=== PATIENT | female | born 1950 | race Caucasian/White ===

== ENCOUNTER → 2022-02-18 11:51 | Outpatient (CLI) | payer OTHER, SELFPAY ==
--- NOTE | ~2022-02-18 | XR_ITS ---
XR shoulder LT min 2V DATE: 02/18/2022 12:32 INDICATION: Left shoulder pain TECHNIQUE: 4 views COMPARISON: None FINDINGS: There is moderate osteophytic change at the left glenohumeral joint including spurring of t he humeral head. Normal alignment at the acromioclavicular and glenohumeral joints. No fracture, disl ocation, periosteal reaction or bone destruction or abnormal soft tissue calcification. Degenerative changes of the thoracic and lumbar spine. Thoracic and lumbar scoliosis. IMPRESSION: Moderate left glenohumeral osteoarthritis Reviewed, dictated and finalized at location A.
--- NOTE | ~2022-02-18 | XR_ITS ---
XR shoulder RT min 2V DATE: 02/18/2022 12:33 INDICATION: Right shoulder pain for 2 months, worsening TECHNIQUE: 4 views COMPARISON: None FINDINGS: There is mild osteoarthritic spurring of the right humeral head. No fracture or dislocation, periosteal reaction or bone destruction of the right shoulder. Normal ali gnment at the right acromioclavicular and glenohumeral joints. No abnormal right shoulder soft tissue calcification. IMPRESSION: Mild right glenohumeral osteoarthritis Reviewed, dictated and finalized at location A.
== END ==
PROVIDERS: PCP Family Medicine; Visit Provider Nurse Practitioner Family
DX: M19.011 Primary osteoarthritis, right shoulder (principal); M19.012 Primary osteoarthritis, left shoulder
CPT/HCPCS: 73030

== ENCOUNTER 2022-11-11 02:46 | Day surgery (SDC) | payer OTHER, SELFPAY ==
[2022-10-30 10:10] VITALS: BMI 21.7
--- NOTE | 2022-11-08 18:06 | P.PNAN_ITS ---
Anes - Eval Pre Procedure Procedure: Operation Date: 11/11/22 13:00 Proposed Procedures p Screening Colonoscopy - Richard Griffiths MD Date/Time: 11/08/22 18:06 Pre Op Diagnosis: family hx colon ca, neoplasm screening Patient Data Age: 72 Gender: F Height: 1.68 m Weight: 61 kg Allergies Allergy/AdvReac Type Severity Reaction Status Date / Time No Known Allergies Allergy Verified 10/30/22 11:02 Home Medications Medication Instructions Recorded Confirmed Type lisinopril 5 mg tablet 5 mg PO DAILY #90 tabs 07/22/22 10/30/22 Rx metformin 500 mg tablet,extended 500 mg PO DAILY #90 tabs 07/22/22 10/30/22 Rx release 24 hr albuterol sulfate 90 mcg/actuation See Rx Instructions inhalation 10/25/22 10/30/22 Rx aerosol inhaler (Ventolin HFA) Q4-6H PRN shortness of breath or wheezing #8.5 grams cyclobenzaprine 5 mg tablet 5 mg PO BID PRN muscle spasm #60 10/25/22 10/30/22 Rx tabs fluticasone 250 mcg-salmeterol 50 1 inh inhalation BID #180 ea 10/25/22 10/30/22 Rx mcg/dose blistr powdr for inhalation (Advair Diskus) meloxicam 15 mg tablet 15 mg PO DAILY #30 tabs 10/25/22 10/30/22 Rx sertraline 50 mg tablet 50 mg PO DAILY 10/30/22 10/30/22 History Patient hx anesthesia problems: none Family hx anesthesia problems: none Results Review: All pre-operative results and documents have been reviewed as part of the pre- operative evaluation. [facility] Past Medical History Medical History (Updated 11/08/22 @ 18:07 by Aisha Copeland CRNA) Anemia Anxiety Anxiety with depression Arthritis Asthma Breast cancer screening Chronic RLQ pain COPD (chronic obstructive pulmonary disease) Depression Diabetes Encounter to establish care Episodic tobacco abuse Family hx of colon cancer History of gastric ulcer Hyperlipidemia Hypertension Insomnia Left foot pain Left shoulder pain Low back pain Low back pain radiating to left lower extremity Multiple sclerosis Neck pain Osteoporosis Pain, joint, multiple sites Paresthesia of hand, bilateral Prediabetes Right hip pain Right shoulder pain Scoliosis Surgical History Surgical History History of surgery on arm left arm when a child History of throat surgery Hx of total knee replacement left knee Family History Family History (Updated 02/18/22 @ 11:17 by LUIS FELIPE Flowers) Mother Asthma Diabetes mellitus Hypertension Depression Anxiety Sibling Colon cancer Social History Social History (Updated 10/25/22 @ 13:08 by LUIS FELIPE Flowers) Years smoked: 50 Smoking status: Current some day smoker Alcohol intake: never Substance use: never Substance use type: does not use Lack of Transportation: No Lack of Food: Never True Current Housing: I Have Housing Concerned About Future Housing: No Difficulty Paying Gas/Electric Bills: No Difficulty Paying for Meds: No Education: High School Diploma/GED Difficulty w/ Childcare or Family Care: No Living arrangements: alone Spiritual care concerns: No Exam Day of Procedure 11/08/22 18:06
[2022-11-11 11:42] VITALS: BP 135/63; PULSE 92; RESP 18; TEMP 36; O2SAT 96
[2022-11-11] MEDS: LACTATED RINGERS 1,000 ML 150 ML IV CONT (11:51)
--- NOTE | 2022-11-11 12:08 | P.PNAN_ITS ---
Anes - Eval Final PreProcedure Day of Procedure 11/11/22 12:08 Patient weight: normal Heart: regular rate and rhythm Lungs: decreased breath sounds Airway: Mallampati scale class II Neurological: alert and oriented Last oral intake: >/= 8 hours ASA classification: III Emergent: no Anesthetic plan: proceed Anesthesia type and monitoring: general GIVS and standard monitoring Results Review: All pre-operative results and documents have been reviewed as part of the pre- operative evaluation. Informed Consent: The patient's anesthetic plan and its attendant risks and benefits were discussed with the patient/family/POA. Questions were solicited and answers provided to the satisfaction of the patient/family/POA.
--- NOTE | 2022-11-11 12:32 | PM.HPGS ---
History of Present Illness History of Present Illness Consent: Risks, benefits, and alternatives have been discussed and questions answered. Patient agrees to proceed with procedure. Chief complaint: family hx colon ca, neoplasm screening Narrative: Nelsy Gomez is a 72 year old female with last colonoscopy 6 years ago, brother had colon cancer Review of Systems Constitutional: Constitutional: Denies headache(s) and Denies weakness Eyes: Eyes: Denies blurry vision ENT: Reports Normal hearing present, Denies headache(s) and Denies neck pain Cardiovascular: Cardiovascular: Denies chest pain and Denies dyspnea Respiratory: Respiratory: Denies dyspnea Gastrointestinal: Gastrointestinal: Reports no additional gastrointestinal complaints Genitourinary: Genitourinary: Denies dysuria Musculoskeletal: Musculoskeletal: Denies neck pain Integumentary/Breasts: Skin/Breast: Denies dry skin Neurologic: Reports Normal hearing present, Denies headache(s) and Denies weakness Psychiatric: Psychiatric: Denies anxiety Endocrine: Endocrine: Denies change in body appearance Hematologic/Lymphatic: Hematologic/Lymphatic: Denies easy bleeding Allergic/Immunologic: Allergic/Immunologic: Denies urticaria PMFSH Past Medical History Medical History (Updated 11/08/22 @ 18:07 by Aisha Copeland CRNA) Anemia Anxiety Anxiety with depression Arthritis Asthma Breast cancer screening Chronic RLQ pain COPD (chronic obstructive pulmonary disease) Depression Diabetes Encounter to establish care Episodic tobacco abuse Family hx of colon cancer History of gastric ulcer Hyperlipidemia Hypertension Insomnia Left foot pain Left shoulder pain Low back pain Low back pain radiating to left lower extremity Multiple sclerosis Neck pain Osteoporosis Pain, joint, multiple sites Paresthesia of hand, bilateral Prediabetes Right hip pain Right shoulder pain Scoliosis Surgical History Surgical History History of surgery on arm left arm when a child History of throat surgery Hx of total knee replacement left knee Family History Family History (Updated 02/18/22 @ 11:17 by LUIS FELIPE Flowers) Mother Asthma Diabetes mellitus Hypertension Depression Anxiety Sibling Colon cancer Social History Social History (Updated 10/25/22 @ 13:08 by LUIS FELIPE Flowers) Years smoked: 50 Smoking status: Current some day smoker Alcohol intake: never Substance use: never Substance use type: does not use Lack of Transportation: No Lack of Food: Never True Current Housing: I Have Housing Concerned About Future Housing: No Difficulty Paying Gas/Electric Bills: No Difficulty Paying for Meds: No Education: High School Diploma/GED Difficulty w/ Childcare or Family Care: No Living arrangements: alone Spiritual care concerns: No Meds Home Medications and Allergies Home Medications Medication Instructions Recorded Confirmed Type lisinopril 5 mg tablet 5 mg PO DAILY #90 tabs 07/22/22 10/30/22 Rx metformin 500 mg tablet,extended 500 mg PO DAILY #90 tabs 07/22/22 10/30/22 Rx release 24 hr albuterol sulfate 90 mcg/actuation See Rx Instructions inhalation 10/25/22 10/30/22 Rx aerosol inhaler (Ventolin HFA) Q4-6H PRN shortness of breath or wheezing #8.5 grams cyclobenzaprine 5 mg tablet 5 mg PO BID PRN muscle spasm #60 10/25/22 10/30/22 Rx tabs fluticasone 250 mcg-salmeterol 50 1 inh inhalation BID #180 ea 10/25/22 10/30/22 Rx mcg/dose blistr powdr for inhalation (Advair Diskus) meloxicam 15 mg tablet 15 mg PO DAILY #30 tabs 10/25/22 10/30/22 Rx sertraline 50 mg tablet 50 mg PO DAILY 10/30/22 10/30/22 History Allergies Allergy/AdvReac Type Severity Reaction Status Date / Time No Known Allergies Allergy Verified 11/11/22 11:40 Vital Signs Vital Signs - 24 hr 11/11/22 11:42 Temperature 96.8 F L Pul
[2022-11-11 12:40] LABS: Glucose Point of Care 77 mg/dl (65-105)
[2022-11-11 13:12] VITALS: BP 94/51; PULSE 93; RESP 25; O2SAT 96
[2022-11-11 13:22] VITALS: BP 120/68; PULSE 77; RESP 20; O2SAT 97
[2022-11-11 13:32] VITALS: BP 121/59; PULSE 69; RESP 23; O2SAT 97
[2022-11-11 13:33] LABS: Glucose Point of Care 69 mg/dl (65-105)
--- NOTE | 2022-11-11 13:40 | SUR.PHASEII ---
pts blood sugar was 79 prior to procedure, checked blood sugar postop and it was 69. pt states she never checks her blood sugar at home but is getting her bloodwork done tomorrow. pt has no c/o, given apple juice and instructed to eat as soon as she is discharged. voiced understanding.
== END 2022-11-11 13:44 | disposition home or self-care (01) ==
PROVIDERS: PCP Family Medicine; Visit Provider Internal Medicine Gastroenterology
PROC: 0DJD8ZZ Inspection of Lower Intestinal Tract, Via Natural or Artificial Opening Endoscopic (ICD-10-PCS; CPT 45378; principal; 2022-11-11 13:00)
DX: Z12.11 Encounter for screening for malignant neoplasm of colon (principal); Z80.0 Family history of malignant neoplasm of digestive organs; K63.5 Polyp of colon; K57.30 Diverticulosis of large intestine without perforation or abscess without bleeding; D64.9 Anemia, unspecified; F41.8 Other specified anxiety disorders; J45.909 Unspecified asthma, uncomplicated; J44.9 Chronic obstructive pulmonary disease, unspecified; E78.5 Hyperlipidemia, unspecified; I10 Essential (primary) hypertension; G47.00 Insomnia, unspecified; G89.29 Other chronic pain; M54.50 Low back pain, unspecified; M79.672 Pain in left foot; E11.9 Type 2 diabetes mellitus without complications; M25.512 Pain in left shoulder; M54.2 Cervicalgia; M25.551 Pain in right hip; M25.511 Pain in right shoulder; G35 Multiple sclerosis; M81.0 Age-related osteoporosis without current pathological fracture; M41.9 Scoliosis, unspecified; Z79.84 Long term (current) use of oral hypoglycemic drugs; Z79.51 Long term (current) use of inhaled steroids; F17.200 Nicotine dependence, unspecified, uncomplicated
CPT/HCPCS: 45385; 82948; 88305; J2704; J7120